=== PATIENT | male | born 1930 | race Caucasian/White ===

== ENCOUNTER 2018-05-29 18:02 | Inpatient (IN) | payer MEDICARE, BC ==
[~2018-05-29] VITALS: Ht 175.3 cm; Wt 73.3 kg
[~2018-05-29 18:02] MED LIST: ERGO500017 PO; Hydrocodone Bit/Acetaminophen PO; LISI-167 PO; MULT-484 PO; POLY17PO5 PO; TAMS-11 PO; TRAM-47 PO
[2018-05-29] MEDS ORDERED: SODIUM CHLORIDE FLUSH 10ML SYR IVF ONE (18:30)
[2018-05-29 18:40] LABS: BASOPHILS # (AUTO) 0.02 x10^3/uL (0-0.1); BASOPHILS % (AUTO) 0 % (0-1); EOSINOPHILS # (AUTO) 0.08 x10^3/uL (0-0.4); EOSINOPHILS % (AUTO) 1 % (1-7); LYMPHOCYTES # (AUTO) 1.32 x10^3/uL (1-3.4); LYMPHOCYTES % (AUTO) 10 % (22-44); MD NO; MEAN CORPUSCULAR HEMOGLOBIN 30.7 pg (27.5-34.5); MEAN CORPUSCULAR HGB CONC 33.3 g/dL (33.2-36.2); MEAN CORPUSCULAR VOLUME 92.2 fL (81-97); MEAN PLATELET VOLUME 9.4 fL (7.4-10.4); MONOCYTES # (AUTO) 0.77 x10^3/uL (0.2-0.8); MONOCYTES % (AUTO) 6 % (2-9); NEUTROPHILS # (AUTO) 10.54 x10^3/uL (1.8-6.8); NEUTROPHILS % (AUTO) 83 % (42-75); PLATELET COUNT 139 x10^3/uL (130-400); RED BLOOD COUNT 5.83 x10^6/uL (4.38-5.82); RED CELL DISTRIBUTION WIDTH 15.5 % (9.4-14.8)
[2018-05-29 18:48] LABS: ANION GAP 10 mmol/L (5-15); CALCIUM 8.7 mg/dL (8.5-10.1); CHLORIDE 106 mmol/L (98-107); CREATININE 1.23 mg/dL (0.7-1.3); INTERNATIONAL NORMALIZED RATIO 1.41 (0.93-1.1); PROTHROMBIN TIME 14.8 Seconds (9.6-11.5)
[2018-05-29] MEDS ORDERED: ONDANSETRON 2MG/ML, 2ML IVPush ONE (20:00)
[2018-05-29] MEDS ORDERED: MORPHINE SULFATE 4 MG/ML, 1ML ONE (20:04)
[2018-05-29] MEDS: MORPHINE SULFATE 4 MG/ML, 1ML IVPush PRN ×2 (20:20→21:30)
[2018-05-29] MEDS ORDERED: SODIUM CHLORIDE FLUSH 10ML SYR IVF PRN (20:30)
[2018-05-29] MEDS ORDERED: FURO-93 PO (20:58)
[2018-05-29] MEDS ORDERED: MORPHINE SULFATE 4 MG/ML, 1ML IVPush PRN (21:30)
[2018-05-29 22:00] VITALS: BP 119/73
[2018-05-29] MEDS ORDERED: SODIUM CHLORIDE 0.9% 1,000 ML IV SCH (22:31)
[2018-05-29] MEDS ORDERED: GABAPENTIN 300 MG CAPSULE PO PRN (23:00)
[2018-05-29] MEDS ORDERED: hydrALAzine 20 MG/ML, 1ML IVPush PRN (23:00)
[2018-05-29] MEDS ORDERED: ONDANSETRON 2MG/ML, 2ML IVPush PRN (23:00)
[2018-05-29] MEDS ORDERED: ERGOCALCIFEROL 50,000 UNIT CAPSULE PO SCH (23:00)
[2018-05-29] MEDS ORDERED: DOCUSATE 100 MG CAPSULE PO PRN (23:00)
[2018-05-29] MEDS ORDERED: morphine SULFATE 10 MG/ML, 1ML IVPush PRN (23:00)
[2018-05-29] MEDS ORDERED: BISACODYL 10 MG SUPP PR PRN (23:00)
[2018-05-29] MEDS ORDERED: ONDANSETRON ODT 4 MG PO PRN (23:00)
[2018-05-29] MEDS ORDERED: ACETAMINOPHEN 325 MG TABLET PO PRN (23:00)
[2018-05-29] MEDS ORDERED: POLYETHYLENE GLYCOL 17 GM PACKET PO PRN (23:00)
[2018-05-29] MEDS ORDERED: PROMETHAZINE 25 MG/ML, 1ML IM PRN (23:00)
[2018-05-29] MEDS ORDERED: LABETALOL 5MG/ML, 20ML IVPush PRN (23:00)
[2018-05-29 23:30] LABS: FREE T4 (FREE THYROXINE) 1.23 ng/dL (0.76-1.46); THYROID STIMULATING HORMONE 6.01 mIU/L (0.358-3.740)
[2018-05-29] MEDS: OXYcodone IR 5MG TABLET PO PRN (23:42)
[2018-05-29 23:56] LABS: HEMOGLOBIN A1C 5.8 % (4.2-6.3)
[2018-05-30 03:35] VITALS: BP 119/52
[2018-05-30] MEDS ORDERED: MIDAZOLAM 1 MG/ML, 2ML ONE (05:19)
[2018-05-30] MEDS ORDERED: FENTANYL PF 100 MCG/2ML ONE (05:19)
[2018-05-30] MEDS ORDERED: ACETAMINOPHEN 325 MG TABLET PO PRN (05:30)
[2018-05-30] MEDS ORDERED: MORPHINE SULFATE 4 MG/ML, 1ML IVPush PRN (05:30)
[2018-05-30] MEDS ORDERED: EPHEDRINE 50 MG/ML, 1ML IVPush PRN (05:30)
[2018-05-30] MEDS ORDERED: FENTANYL PF 100 MCG/2ML IV PRN (05:30)
[2018-05-30] MEDS ORDERED: hydrALAzine 20 MG/ML, 1ML IV PRN (05:30)
[2018-05-30] MEDS ORDERED: LABETALOL 5MG/ML, 20ML IV PRN (05:30)
[2018-05-30] MEDS ORDERED: METOCLOPRAMIDE 5 MG/ML, 2ML IV PRN (05:30)
[2018-05-30] MEDS ORDERED: CEFAZOLIN 1,000 MG ONE (05:33)
[2018-05-30] MEDS ORDERED: ETOMIDATE 40 MG/20 ML ONE (05:33)
[2018-05-30] MEDS ORDERED: PHENYLEPHRINE 10 MG/ML ONE (05:33)
[2018-05-30] MEDS ORDERED: EPHEDRINE 50 MG/ML, 1ML ONE (05:33)
[2018-05-30] MEDS ORDERED: PROPOFOL 10 MG/ML, 20ML ONE (07:38)
[2018-05-30] MEDS ORDERED: GLYCOPYRROLATE 0.4 MG/2 ML, 2ML ONE (07:38)
[2018-05-30] MEDS ORDERED: NEOSTIGMINE 1 MG/ML, 10ML ONE (07:38)
[2018-05-30] MEDS ORDERED: CEFAZOLIN PMX 1GM/50ML 50 ML IVPB SCH (08:00)
[2018-05-30 10:40] VITALS: BP 94/67
[2018-05-30] MEDS: TAMSULOSIN 0.4 MG CAP.ER.24H PO SCH (10:44)
[2018-05-30] MEDS: MULTIVITAMINS/MINERALS TABLET PO SCH (10:45)
[2018-05-30] MEDS: OXYcodone IR 5MG TABLET PO PRN (11:56)
[2018-05-30 12:12] LABS: CHLORIDE 106 mmol/L (98-107)
[2018-05-30 12:19] LABS: ALANINE AMINOTRANSFERASE 23 U/L (12-78); ALBUMIN 3.3 g/dL (3.4-5.0); ALKALINE PHOSPHATASE 84 U/L (45-117); ANION GAP 7 mmol/L (5-15); BILIRUBIN,TOTAL 2.7 mg/dL (0.2-1.0); CALCIUM 8.3 mg/dL (8.5-10.1); CHOL/HDL RATIO 3.1; CHOLESTEROL, TOTAL 141 mg/dL (140-239); CREATININE 1.38 mg/dL (0.7-1.3); HDL CHOL % 33 % (26-37); HDL CHOLESTEROL (DIRECT) 46 mg/dL (40-60); LDL CHOLESTEROL,CALCULATED 81 mg/dL (54-169); LDL/HDL RATIO 1.8 (0.5-3.0); TOTAL PROTEIN 5.8 g/dL (6.4-8.2); TRIGLYCERIDES 69 mg/dL (50-200); VLDL CHOLESTEROL 14 mg/dL (0-25)
[2018-05-30 12:43] LABS: BASOPHILS # (AUTO) 0.06 x10^3/uL (0-0.1); BASOPHILS % (AUTO) 0 % (0-1); EOSINOPHILS # (AUTO) 0.19 x10^3/uL (0-0.4); EOSINOPHILS % (AUTO) 1 % (1-7); LYMPHOCYTES # (AUTO) 1.77 x10^3/uL (1-3.4); LYMPHOCYTES % (AUTO) 13 % (22-44); MD NO; MEAN CORPUSCULAR HEMOGLOBIN 30.5 pg (27.5-34.5); MEAN CORPUSCULAR HGB CONC 33.1 g/dL (33.2-36.2); MEAN CORPUSCULAR VOLUME 92.1 fL (81-97); MONOCYTES # (AUTO) 1.37 x10^3/uL (0.2-0.8); MONOCYTES % (AUTO) 10 % (2-9); NEUTROPHILS # (AUTO) 10.02 x10^3/uL (1.8-6.8); NEUTROPHILS % (AUTO) 75 % (42-75); PLATELET COUNT 128 x10^3/uL (130-400); RED BLOOD COUNT 5.07 x10^6/uL (4.38-5.82); RED CELL DISTRIBUTION WIDTH 15.6 % (9.4-14.8)
[2018-05-30 13:11] VITALS: BP 92/78
[2018-05-30] MEDS ORDERED: CEFAZOLIN 1,000 MG in SODIUM CHLORIDE 0.9% 50 ML IVPB SCH ×2 (13:30→16:00)
[2018-05-30] MEDS: CEFAZOLIN 1,000 MG in SODIUM CHLORIDE 0.9% 50 ML IVPB SCH ×2 (14:41→22:13)
[2018-05-30] MEDS ORDERED: ATOR40TA PO (15:28)
[2018-05-30] MEDS ORDERED: CARV3.122 PO (15:28)
[2018-05-30] MEDS ORDERED: ALLO300T PO (15:28)
[2018-05-30] MEDS ORDERED: LISI2.5T PO (15:28)
[2018-05-30] MEDS ORDERED: WARF2TAB99 PO (15:28)
[2018-05-30] MEDS ORDERED: ASPI-496 PO (15:28)
[2018-05-30] MEDS ORDERED: DIAZEPAM 5 MG/ML, 10ML VIAL IV PRN (16:30)
[2018-05-30 20:00] VITALS: BP 122/80
[2018-05-31 01:25] VITALS: BP 91/62
[2018-05-31 05:57] LABS: MEAN CORPUSCULAR HEMOGLOBIN 31.1 pg (27.5-34.5); MEAN CORPUSCULAR HGB CONC 33.6 g/dL (33.2-36.2); MEAN CORPUSCULAR VOLUME 92.6 fL (81-97); RED BLOOD COUNT 4.71 x10^6/uL (4.38-5.82); RED CELL DISTRIBUTION WIDTH 15.2 % (9.4-14.8)
[2018-05-31 06:08] LABS: ANION GAP 10 mmol/L (5-15); CALCIUM 8.1 mg/dL (8.5-10.1); CHLORIDE 105 mmol/L (98-107)
[2018-05-31 06:10] LABS: CREATININE 1.38 mg/dL (0.7-1.3)
[2018-05-31 06:35] VITALS: BP 125/77
[2018-05-31 06:41] LABS: BASOPHILS # (AUTO) 0.04 x10^3/uL (0-0.1); BASOPHILS % (AUTO) 0 % (0-1); EOSINOPHILS # (AUTO) 0.08 x10^3/uL (0-0.4); EOSINOPHILS % (AUTO) 1 % (1-7); LYMPHOCYTES # (AUTO) 1.36 x10^3/uL (1-3.4); LYMPHOCYTES % (AUTO) 11 % (22-44); MD SCAN; MEAN PLATELET VOLUME 9.6 fL (7.4-10.4); MONOCYTES # (AUTO) 1.66 x10^3/uL (0.2-0.8); MONOCYTES % (AUTO) 13 % (2-9); NEUTROPHILS # (AUTO) 9.66 x10^3/uL (1.8-6.8); NEUTROPHILS % (AUTO) 76 % (42-75); PLATELET COUNT 97 x10^3/uL (130-400)
[2018-05-31] MEDS: MULTIVITAMINS/MINERALS TABLET PO SCH (09:09)
[2018-05-31] MEDS: TAMSULOSIN 0.4 MG CAP.ER.24H PO SCH (09:09)
[2018-05-31 12:00] VITALS: BP 100/76
[2018-05-31] MEDS ORDERED: SODIUM CHLORIDE 0.9% 1,000 ML IV ONE (16:00)
[2018-05-31 18:37] VITALS: BP 107/68
[2018-06-01 01:02] VITALS: BP 111/75
[2018-06-01 05:55] LABS: ANION GAP 8 mmol/L (5-15); CALCIUM 7.6 mg/dL (8.5-10.1); CHLORIDE 109 mmol/L (98-107); CREATININE 1.08 mg/dL (0.7-1.3)
[2018-06-01 06:08] LABS: MEAN CORPUSCULAR HEMOGLOBIN 30.6 pg (27.5-34.5); MEAN CORPUSCULAR VOLUME 92.8 fL (81-97); RED BLOOD COUNT 4.26 x10^6/uL (4.38-5.82)
[2018-06-01 07:00] LABS: BASOPHILS # (AUTO) 0.01 x10^3/uL (0-0.1); BASOPHILS % (AUTO) 0 % (0-1); EOSINOPHILS # (AUTO) 0.15 x10^3/uL (0-0.4); EOSINOPHILS % (AUTO) 1 % (1-7); LYMPHOCYTES # (AUTO) 1.15 x10^3/uL (1-3.4); LYMPHOCYTES % (AUTO) 10 % (22-44); MD SCAN; MEAN PLATELET VOLUME 9.8 fL (7.4-10.4); MONOCYTES # (AUTO) 1.24 x10^3/uL (0.2-0.8); MONOCYTES % (AUTO) 11 % (2-9); NEUTROPHILS # (AUTO) 9.04 x10^3/uL (1.8-6.8); NEUTROPHILS % (AUTO) 78 % (42-75); PLATELET COUNT 85 x10^3/uL (130-400)
[2018-06-01] MEDS: MULTIVITAMINS/MINERALS TABLET PO SCH (08:58)
[2018-06-01] MEDS: TAMSULOSIN 0.4 MG CAP.ER.24H PO SCH (08:58)
[2018-06-01 10:05] VITALS: BP 104/65
[2018-06-01 10:06] LABS: INTERNATIONAL NORMALIZED RATIO 1.35 (0.93-1.1); PROTHROMBIN TIME 14.1 Seconds (9.6-11.5)
[2018-06-01] MEDS ORDERED: GABA300C10 PO (12:54)
[2018-06-01 14:17] VITALS: BP 106/75
[2018-06-01] MEDS ORDERED: WARFARIN 5 MG TABLET PO-COUM SCH (18:00)
== END 2018-06-01 15:13 | DRG 492 ==
LOC: ED 19:40 → EDIP 20:21 → 4NOR 21:15
PROVIDERS: ADMIT Internal Medicine; ATTEND Internal Medicine
PROC: 0QSKXZZ Reposition Left Fibula, External Approach (ICD-10-PCS; 2018-05-29)
PROC: 0QSHXZZ Reposition Left Tibia, External Approach (ICD-10-PCS; 2018-05-29)
PROC: 2W3RX1Z Immobilization of Left Lower Leg using Splint (ICD-10-PCS; 2018-05-29)
PROC: 0QSH06Z Reposition Left Tibia with Intramedullary Internal Fixation Device, Open Approach (ICD-10-PCS; principal; 2018-05-30 05:30)
DX: M80.062A Age-related osteoporosis with current pathological fracture, left lower leg, initial encounter for fracture (principal); N17.0 Acute kidney failure with tubular necrosis; J96.01 Acute respiratory failure with hypoxia; E44.0 Moderate protein-calorie malnutrition; D68.69 Other thrombophilia; I50.42 Chronic combined systolic (congestive) and diastolic (congestive) heart failure; D72.823 Leukemoid reaction; G89.29 Other chronic pain; I11.0 Hypertensive heart disease with heart failure; M85.862 Other specified disorders of bone density and structure, left lower leg; I25.5 Ischemic cardiomyopathy; M10.9 Gout, unspecified; N40.0 Benign prostatic hyperplasia without lower urinary tract symptoms; S82.492A Other fracture of shaft of left fibula, initial encounter for closed fracture; W01.0XXA Fall on same level from slipping, tripping and stumbling without subsequent striking against object, initial encounter; Z96.642 Presence of left artificial hip joint; I25.2 Old myocardial infarction; Z87.891 Personal history of nicotine dependence; Z79.01 Long term (current) use of anticoagulants; Z95.2 Presence of prosthetic heart valve; Z95.810 Presence of automatic (implantable) cardiac defibrillator; Z68.23 Body mass index [BMI] 23.0-23.9, adult; Y93.89 Activity, other specified; Y92.098 Other place in other non-institutional residence as the place of occurrence of the external cause; Y99.8 Other external cause status
CPT/HCPCS: 27788; 36415; 76001; 80048; 80053; 80061; 82040; 83036; 83735; 84439; 84443; 85025; 85610; 85730; 93005; C1713; G0378; J0690; J2250; J2704; J2710; J3010; J3360; J2270; J2370; J7030